=== PATIENT | male | born 1980 | race Caucasian/White ===

== ENCOUNTER 2017-09-03 13:20 | Day surgery (SDC) | payer BC ==
[2017-09-03] MEDS ORDERED: Lidocaine 1%/Sod Bicarbonate in NS 8.4% 1 ML Syringe IV PRN (13:46)
[2017-09-03] MEDS ORDERED: Sodium Chloride 0.9% 10 ML Syringe FLUSH PRN (13:46)
[2017-09-03] MEDS ORDERED: Lactated Ringers 1,000 ML IV SCH (14:00)
[2017-09-03] MEDS ORDERED: Lidocaine 1% 30 ML SDV ONE (14:04)
[2017-09-03] MEDS ORDERED: Bupivacaine 0.25% 30 ML SDV ONE (14:04)
[2017-09-03] MEDS ORDERED: fentaNYL 100 MCG/2 ML SDV ONE ×2 (14:19→14:31)
[2017-09-03] MEDS ORDERED: Propofol 200 MG/20 ML SDV ONE ×3 (14:19→14:56)
[2017-09-03] MEDS ORDERED: Midazolam 1 MG/ML 2 ML SDV ONE (14:19)
[2017-09-03] MEDS ORDERED: Ketamine 500 mg/10 ML MDV ONE (14:22)
[2017-09-03] MEDS ORDERED: Lidocaine 1% 4 ML ONE (14:22)
[2017-09-03] MEDS ORDERED: ceFAZolin 1 GM Vial ONE (14:52)
[2017-09-03 15:17] VITALS: BP 156/87
--- NOTE | 2017-09-03 15:19 | PCM48HPAN ---
Post Anesthesia Note - EVALUATION WITHIN 48HRS OF ANESTHETIC Vital Signs in Normal Range: Yes Patient Participated in Evaluation: Yes Respiratory Function Stable: Yes Airway Patent: Yes Cardiovascular Function Stable: Yes Hydration Status Stable: Yes Pain Control Satisfactory: Yes Nausea and Vomiting Control Satisfactory: Yes Mental Status Recovered: Yes
--- NOTE | 2017-09-03 15:29 | PCM.PREANE ---
Preanesthetic Assessment - Procedure Proposed Procedure: I&D right hand 3rd finger - Anesthesia/Transfusion/Family Hx Anesthesia History: No Prior Anesthesia Family History of Anesthesia Reaction: No Transfusion History: No Prior Transfusion(s) - Review of Systems General: No Symptoms Pulmonary: Other (asthma- uses albuterol prn (1x/year)) Cardiovascular: No Symptoms Gastrointestinal: No Symptoms Neurological: No Symptoms Other: Reports: None - Physical Assessment NPO Status Date: 09/03/17 NPO Status Time: 08:00 O2 Sat by Pulse Oximetry: 98 Respiratory Rate: 16 Vital Signs: Last Vital Signs Temp 36.8 C 09/03/17 15:09 Pulse 86 09/03/17 15:09 Resp 16 09/03/17 15:09 BP 156/87 H 09/03/17 15:09 Pulse Ox 98 09/03/17 15:09 Height: 1.83 m Weight: 143.335 kg ASA Class: 2 Mental Status: Alert & Oriented x3 Airway Class: Mallampati = 2 Dentition: Reports: Normal Dentition Thyro-Mental Finger Breadths: 3 Mouth Opening Finger Breadths: 3 ROM/Head Extension: Full Lungs: Clear to Auscultation, Normal Respiratory Effort Cardiovascular: Regular Rate, Regular Rhythm - Allergies Allergies/Adverse Reactions: Allergies Allergy/AdvReac Type Severity Reaction Status Date / Time No Known Allergies Allergy Verified 08/13/15 18:06 - Blood Blood Available: No Product(s) Available: None - Anesthesia Plan Pre-Op Medication Ordered: None - Acknowledgements Anesthesia Type Planned: MAC (with local per surgeon ) Pt an Appropriate Candidate for the Planned Anesthesia: Yes Alternatives and Risks of Anesthesia Discussed w Pt/Guardian: Yes Pt/Guardian Understands and Agrees with Anesthesia Plan: Yes PreAnesthesia Questionnaire HEENT History: Reports: Allergic Rhinitis, Impaired Vision Other HEENT History: glasses Cardiovascular History: Reports: Hypertension Respiratory History: Reports: Asthma Musculoskeletal History: Reports: Fracture Other Musculoskeletal History: cellulitis right middle finger Dermatologic History: Reports: Cellulitis - Past Surgical History HEENT Surgical History: Reports: Tonsillectomy - SUBSTANCE USE Smoking Status *Q: Current Every Day Smoker Tobacco Use Within Last Twelve Months: Cigarettes Days Per Week of Alcohol Use: 1 Number of Drinks Per Day: 1 Total Drinks Per Week: 1 Recreational Drug Use History: No - HOME MEDS Home Medications: Home Meds Hydrocodone/Acetaminophen [Waite 5-325 Tablet] 1 - 2 each PO Q6H PRN #40 tablet 09/03/17 [Rx] amLODIPine Besylate [Amlodipine Besylate] 10 mg PO DAILY 09/03/17 [History] - CURRENT (IN HOUSE) MEDS Current Meds: Current Medications Lactated Ringer's (Ringers, Lactated) 1,000 mls @ 125 mls/hr IV ASDIRECTED LAURENT Stop: 09/03/17 23:00 Last Admin: 09/03/17 13:40 Dose: 125 mls/hr Lidocaine/Sodium Bicarbonate (Buffered Lidocaine 1% In Ns 8.4%) 0.25 ml IV ONETIME PRN PRN Reason: Prior to IV Start Stop: 09/03/17 20:00 Last Admin: 09/03/17 13:40 Dose: 0.25 ml Sodium Chloride (Saline Flush) 10 ml FLUSH ASDIRECTED PRN PRN Reason: Keep Vein Open Stop: 09/03/17 20:00 Discontinued Medications Bupivacaine HCl (Marcaine 0.25%) Confirm Administered Dose 30 ml .ROUTE .STK- MED ONE Stop: 09/03/17 14:05 Last Admin: 09/03/17 14:37 Dose: 13 ml Cefazolin Sodium (Ancef) Confirm Administered Dose 3 gm .ROUTE .STK-MED ONE Stop: 09/03/17 14:53 Fentanyl (Sublimaze) Confirm Administered Dose 100 mcg .ROUTE .STK-MED ONE Stop: 09/03/17 14:20 Fentanyl (Sublimaze) Confirm Administered Dose 100 mcg .ROUTE .STK-MED ONE Stop: 09/03/17 14:32 Lidocaine HCl (Xylocaine-Mpf 1%) Confirm Administered Dose 4 mls @ as directed .ROUTE .STK-MED ONE Stop: 09/03/17 14:23 Ketamine HCl (Ketalar) Confirm Administered Dose 500 mg .ROUTE .STK-MED ONE Stop: 09/03/17 14:23 Lidocaine HCl (Xylocaine-Mpf 1%) Confirm Administered Dose 30 ml .ROUTE .STK- MED ONE Stop: 09/03/17 14:05 Last Admin: 09/03/17 14:37 Dose: 13 ml Midazolam HCl (Versed 1 Mg/Ml) Confirm Administered Dose 2 mg .ROUTE .STK-MED ONE Stop: 09/03/17 14:20 Propofol (Diprivan 20 Ml) Confirm Administered Dose 200 mg .ROUTE .STK-MED ONE Stop: 09/03/17 14:20 Propofol (Diprivan 20 Ml) Confirm Administered Dose 200 mg .ROUTE .STK-MED ONE Stop: 09/03/17 14:46 Propofol (Diprivan 20 Ml) Confirm Administered Dose 200 mg .ROUTE .STK-MED ONE Stop: 09/03/17 14:57
--- NOTE | 2017-09-03 16:37 | PCM.SN ---
- Free Text/Narrative Note: PICC Insertion Date: 09-03-17 Start: 1550 Stop: [address] 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 Chart reviewed. Patient educated. Agrees to proceed. Consent signed. Site cleansed with ChloraPrep. Lidocaine 1% local anesthetic injected prior to 20ga IV catheter insertion under ultrasound guidance to left proximal antecubital. Sterile gown, gloves and drape used. 4fr Groshong NXT ClearVue PICC inserted 48cm per sterile technique. Secured with statlock. Flushes well with NaCl with good blood return. Dressed with opsite with CHG. 12cm PICC catheter remains out for measurement purposes. Chest Xray taken. Confirmed SVC placement per radiologist. Chris Kimball MANGLE TENDER CLOTH
--- NOTE | 2017-09-03 17:12 | CR ---
Chest: Portable view of the chest was obtained. Comparison: Prior chest x-ray 08/18/16. Left-sided PICC line is seen. Tip lies in the region the superior vena cava in satisfactory position. Lungs are clear. Heart size and mediastinum are normal. Impression: 1. Left-sided PICC line. Tip lies in the region superior vena cava which is satisfactory. 2. Nothing acute is otherwise seen on chest x-ray. Diagnostic code #2
--- NOTE | 2017-09-03 17:14 | CR ---
Chest: Portable supine view of the chest is obtained. Comparison: Previous chest x-ray performed earlier on the same day. Tip of PICC line has been advanced. Tip still lies within the expected region the superior vena cava which is satisfactory. Heart size and mediastinum are normal. Lungs are clear. Bony structures are grossly intact. Impression: 1. Tip of PICC line within the superior vena cava. This is satisfactory in position. 2. Nothing acute is otherwise seen. Diagnostic code #2
--- NOTE | 2017-09-04 21:59 | PCM.OPNOTE ---
- General Post-Op/Procedure Note Date of Surgery/Procedure: 09/03/17 Operative Procedure(s): incision and draingage with irrigation of right long finger abscess Pre Op Diagnosis: right long finger abscess with osteomyelitis Post-Op Diagnosis: Same Anesthesia Technique: Local, MAC Primary Surgeon: Lopez Flynn Anesthesia Provider: Chris Kimball EBL in mLs: 25 Complications: None Condition: Good
--- NOTE | 2017-09-04 22:23 | OR ---
DATE OF OPERATION: 09/03/2017 SURGEON: Lopez Flynn MD OPERATION PERFORMED: Incision and drainage with irrigation of right long finger abscess. PREOPERATIVE DIAGNOSIS: Right long finger abscess with osteomyelitis. POSTOPERATIVE DIAGNOSIS: Right long finger abscess with osteomyelitis. ANESTHESIA: Local MAC. ANESTHESIA PROVIDER: Chris Kimball. ESTIMATED BLOOD LOSS: 25 mL. COMPLICATIONS: None. CONDITION: Stable. STRAW BOSS: None. DESCRIPTION OF PROCEDURE: The patient was identified in the preop holding area. Proper site was marked and identified by the surgeon. The patient was taken back to the operating theater where after adequate anesthesia, the patient's right upper extremity was sterilely prepped and draped in the usual sterile fashion. OR time-out was performed. The patient did not receive antibiotics until after cultures. At this time, a dorsolateral incision was made over the radial side of the right long finger from the PIP to the MCP joint. Blunt dissection was then taken down. There was noted to be a minor amount of purulent material noted in the subcutaneous tissues. Care was taken to protect the neurovascular bundle. At this time, I did dissect the soft tissues to make sure there was no missing abscess noted. At this time, 2 sets of aerobic and 2 sets of anaerobic cultures were then completed. A 3 L of normal saline was then irrigated through the incision. A 4-0 nylon simple suture was used for closure of the skin. The patient was placed in a sterile soft dressing. He did receive Ancef antibiotic and then was sent to the PACU in stable condition where the patient received a PICC line. CARMEL /[id number]
== END 2017-09-03 16:45 | disposition home or self-care (01) ==
LOC: JD.SDS 13:20
PROVIDERS: ATTEND Orthopaedic Surgery
DX: L02.511 Cutaneous abscess of right hand (principal); M86.9 Osteomyelitis, unspecified; J45.909 Unspecified asthma, uncomplicated; I10 Essential (primary) hypertension; F17.210 Nicotine dependence, cigarettes, uncomplicated; Z79.899 Other long term (current) drug therapy; Z90.49 Acquired absence of other specified parts of digestive tract
CPT/HCPCS: 26010; 36569; 87075; 87205; 87641; J0690; J2250; J3010; J3490; J7120; 00400; 87076; 87077; 87181; C1751; J2001; J2704

== ENCOUNTER 2019-05-08 21:08 | Emergency (ER) | payer BC ==
[2019-05-08 21:20] VITALS: PULSE 83
--- NOTE | 2019-05-08 23:52 | EDM.PDOC ---
ED HPI GENERAL MEDICAL PROBLEM - General Chief Complaint: General Stated Complaint: HIGH BP/HEADACHE Time Seen by Provider: 05/08/19 23:12 Source of Information: Reports: Patient, Family History Limitations: Reports: No Limitations - History of Present Illness INITIAL COMMENTS - FREE TEXT/NARRATIVE: Mr. Cunningham is a 38-year-old man with a past medical history significant for hypertension, who states that he has had abdominal pain nightly, after he eats, for years, his face, ears, and neck have been burning on and off for the past 3- 4 days, he has felt irritable and short tempered for the past 2-3 days, he had a sore throat today, and his daughter was diagnosed with strep throat 9 days ago , he has felt lightheaded this afternoon, on off, even if supine, he had nausea without emesis from 17:00 to 23:#0, which has now resolved, he had a headache from 18:00 to 22:30, which has now resolved, and his blood pressure was elevated at home while he was feeling poorly. Here in the ED, the patient's initial BP was 194/89, however, it decreased to 151/72 without treatment. It has been variable since. The patient's PCP is Sophia Graves NP. Lower Posterior Headache Pain Score (Numeric/FACES): 7 - Related Data Allergies Allergy/AdvReac Type Severity Reaction Status Date / Time cefepime [From Maxipime] Allergy Hives Verified 05/08/19 21:20 Home Meds: Home Meds Metoprolol Succinate 25 mg PO DAILY 05/08/19 [History] Past Medical History HEENT History: Reports: Impaired Vision Other HEENT History: glasses Cardiovascular History: Reports: Hypertension Respiratory History: Reports: Asthma (suspected, not tested) Endocrine/Metabolic History: Reports: Obesity/BMI 30+ - Past Surgical History HEENT Surgical History: Reports: Tonsillectomy Musculoskeletal Surgical History: Reports: Other (See Below) (Right 3rd finger I &D) Social & Family History - Family History Family Medical History: Noncontributory Cardiac: Reports: CAD - Tobacco Use Smoking Status *Q: Current Every Day Smoker Years of Tobacco use: 12 Packs/Tins Daily: 1 - Caffeine Use Caffeine Use: Reports: Coffee, Soda - Alcohol Use Alcohol Use History: Yes Alcohol Use Frequency: Socially - Recreational Drug Use Recreational Drug Use: Yes Drug Use in Last 12 Months: No Recreational Drug Type: Reports: Marijuana/Hashish (last smoked in HS) - Living Situation & Occupation Living situation: Reports: , with Spouse, with Family (4 kids) Occupation: Employed ([employer]) ED ROS GENERAL - Review of Systems Review Of Systems: ROS reveals no pertinent complaints other than HPI. ED EXAM, GENERAL - Physical Exam Exam: See Below Exam Limited By: No Limitations General Appearance: Alert, WD/WN, No Apparent Distress Eye Exam: Bilateral Eye: EOMI, Normal Inspection, PERRL Ears: Normal External Exam, Normal Canal, Hearing Grossly Normal, Normal TMs Nose: Normal Inspection, No Blood, Nasal Swelling (Mild bilateral nasal congestion, worse on the right than the left) Throat/Mouth: Normal Inspection, Normal Lips, Normal Teeth, Normal Gums, Normal Oropharynx (no visible tonsils), Normal Voice, No Airway Compromise Head: Atraumatic, Normocephalic Neck: Normal Inspection, Supple, Non-Tender, Full Range of Motion. No: Lymphadenopathy (L), Lymphadenopathy (R) Respiratory/Chest: No Respiratory Distress, Lungs Clear, Normal Breath Sounds, No Accessory Muscle Use Cardiovascular: Normal Peripheral Pulses, Regular Rate, Rhythm, No Edema, No Gallop, No JVD, No Murmur, No Rub Peripheral Pulses: 4+: Radial (L), Radial (R) GI/Abdominal: Normal Bowel Sounds, Soft, No Organomegaly, No Distention, No Abnormal Bruit, No Mass, Tender (Mild, generalized, with slightly increased pain to the right upper quadrant) (Male) Exam: Deferred Rectal (Males) Exam: Deferred Back Exam: Normal Inspection, Full Range of Motion. No: CVA Tenderness (L), CVA Tenderness (R) Extremities: Normal Inspection, Normal Range of Motion, No Pedal Edema, Normal Capillary Refill Neurological: Alert, Oriented, CN II-XII Intact, Normal Cognition, No Motor/ Sensory Deficits Psychiatric: Normal Affect Skin Exam: Warm, Dry, Intact, Normal Color, No Rash Course - Vital Signs Last Recorded V/S: Last Vital Signs Temp 37.7 C 05/08/19 21:15 Pulse 83 05/08/19 21:15 Resp 18 05/08/19 21:15 BP 172/92 H 05/08/19 23:53 Pulse Ox 97 05/08/19 21:15 Orthostatic Blood Pressure [ 168/108 Standing] Orthostatic Blood Pressure [ 165/82 Supine] - Orders/Labs/Meds Orders: Active Orders 24 hr Category Date Time Status Orthostatic Vital Signs [RC] STAT Care 05/08/19 23:48 Active CULTURE STREP A CONFIRMATION [RM] Stat Lab 05/08/19 23:44 Results STREP SCRN A RAPID W CULT CONF [RM] Stat Lab 05/08/19 23:44 Results - Re-Assessments/Exams Free Text/Narrative Re-Assessment/Exam: 05/08/19 23:49 The patient's blood pressure has been variable here in the ED, but has been as low as 151/72. The headache that he had at home resolved over an hour ago. His neurologic examination is completely normal, and his physical exam is nonfocal. Although the patient underwent a tonsillectomy as a child, and I see no tonsils on his physical examination, I swabbed him for a rapid strep test, since his daughter was diagnosed with strep throat 9 days ago and he is complaining of a bad sore throat. Because the patient is complaining of lightheadedness, I order orthostatics. I do not, however, see the need for any blood work or an imaging study at this time. 05/08/19 23:59 The patient is not orthostatic. 05/09/19 01:05 The patient's rapid strep test returned negative. Test results discussed with the patient and his . As above, his physical exam was nonfocal, he is not orthostatic, and his rapid strep test was negative , therefore I do not find any immediate concerns that need to be addressed. I explained that the patient's blood pressure, while somewhat elevated, was not so high as to require emergent treatment, and I explained that if he wants to see if his blood pressure is adequately controlled, he needs to check it 2-3 times per week for 2-3 weeks, but only under restful conditions. With respect to his lightheadedness, I opined that it could be due to ethmoid sinusitis, and I opined that the most important thing that the patient can do if he wants to feel better overall would be to quit smoking. As for the patient's constellation of symptoms of lightheadedness, headache, nausea, and sore throat , I suspect that he is suffering from a viral URI. The patient expressed understanding, however, his appears to be somewhat angry, perhaps over the relatively long wait. She replied that they will go to their PCP to get it figured out. Departure - Departure Time of Disposition: 01:07 Disposition: Home, Self-Care 01 Condition: Good Clinical Impression: Elevated blood pressure reading, Lightheaded, Sore throat, Nausea, Headache, Feeling irritable - Discharge Information *PRESCRIPTION DRUG MONITORING PROGRAM REVIEWED*: Not Applicable *COPY OF PRESCRIPTION DRUG MONITORING REPORT IN PATIENT ANTWON: Not Applicable Instructions: Strep Throat, [id number] Referrals: Sophia Graves PAYROLL ADMINISTRATIVE ASSISTANT [Primary Care Provider] - Forms: ED Department Discharge Additional Instructions: You were seen in the emergency room for a burning sensation to your face, neck, and ears, feeling irritable and short tempered, lightheadedness, having a headache, nausea, a sore throat, abdominal pain, and having increased blood pressure today. Workup in the ER included a rapid strep test and positional blood pressure checks. You are not orthostatic, meaning, you are not intravascularly dry. Your rapid strep test returned negative. You do not have strep throat. Based on your history, physical exam, and ER tests, you are most likely suffering from a viral URI. While your blood pressure was elevated in the ER, it came down somewhat without treatment, and was never so high as to require emergency treatment. We recommend that you continue to take your metoprolol once daily, as prescribed. In order to determine if your blood pressure is adequately controlled, we recommend that you check your blood pressure 2-3 times a week, preferably at different times a day, for 2-3 weeks, but only under restful conditions = you' re sitting quietly for at least 5 and preferably 15 minutes, you are not in pain , you're not anxious, and you are not sick. Write the numbers down and present them to your PCP when you next see her. If any other problems, please do not hesitate to return to the ER. - My Orders Last 24 Hours: My Active Orders 05/08/19 23:44 CULTURE STREP A CONFIRMATION [RM] Stat STREP SCRN A RAPID W CULT CONF [RM] Stat 05/08/19 23:48 Orthostatic Vital Signs [RC] STAT - Assessment/Plan Last 24 Hours: My Active Orders 05/08/19 23:44 CULTURE STREP A CONFIRMATION [RM] Stat STREP SCRN A RAPID W CULT CONF [RM] Stat 05/08/19 23:48 Orthostatic Vital Signs [RC] STAT
[2019-05-08 23:54] VITALS: BP 172/92
== END 2019-05-09 01:22 | disposition home or self-care (01) ==
LOC: JD.ED 21:08
DX: I10 Essential (primary) hypertension (principal); R42 Dizziness and giddiness; J02.9 Acute pharyngitis, unspecified; R51 Headache; R45.4 Irritability and anger; R11.0 Nausea; F17.210 Nicotine dependence, cigarettes, uncomplicated; Z88.1 Allergy status to other antibiotic agents; Z98.890 Other specified postprocedural states; Z79.899 Other long term (current) drug therapy; E66.9 Obesity, unspecified; Z68.39 Body mass index [BMI] 39.0-39.9, adult
CPT/HCPCS: 87081; 87430; 99283